=== PATIENT | female | born 1950 | race Hispanic/Latino ===

== ENCOUNTER → 2018-04-24 | Outpatient (CLI) | payer OTHER, MEDICARE | END | disposition home or self-care (01) | LOC: SHCH 15:50 | PROVIDERS: ATTEND Internal Medicine Cardiovascular Disease | DX: I87.2 Venous insufficiency (chronic) (peripheral) (principal) | CPT/HCPCS: 93970 ==

== ENCOUNTER → 2018-05-04 | Outpatient (CLI) | payer OTHER, MEDICARE | END | disposition home or self-care (01) | LOC: SHCH 08:25 | PROVIDERS: ATTEND Internal Medicine Cardiovascular Disease | DX: I51.7 Cardiomegaly (principal); R01.1 Cardiac murmur, unspecified | CPT/HCPCS: 93306 ==

== ENCOUNTER → 2019-09-03 | Outpatient (CLI) | payer OTHER, MEDICARE | END | disposition home or self-care (01) | LOC: OIH 15:22 | PROVIDERS: ATTEND Family Medicine | DX: M17.12 Unilateral primary osteoarthritis, left knee (principal); M25.762 Osteophyte, left knee | CPT/HCPCS: 73562 ==

== ENCOUNTER → 2020-11-24 | Outpatient (CLI) | payer OTHER | END | disposition home or self-care (01) | LOC: OIH 14:32 | PROVIDERS: ATTEND Family Medicine | DX: Z01.818 Encounter for other preprocedural examination (principal); I70.0 Atherosclerosis of aorta; J98.11 Atelectasis; M51.35 Other intervertebral disc degeneration, thoracolumbar region; M41.84 Other forms of scoliosis, thoracic region | CPT/HCPCS: 71046 ==

== ENCOUNTER → 2021-11-23 | Outpatient (CLI) | payer OTHER | END | disposition home or self-care (01) | LOC: RAH 14:24 | PROVIDERS: ATTEND Neurological Surgery | DX: M96.1 Postlaminectomy syndrome, not elsewhere classified (principal); M47.816 Spondylosis without myelopathy or radiculopathy, lumbar region; M48.061 Spinal stenosis, lumbar region without neurogenic claudication; M43.5X7 Other recurrent vertebral dislocation, lumbosacral region; M51.35 Other intervertebral disc degeneration, thoracolumbar region; M48.05 Spinal stenosis, thoracolumbar region; Z98.1 Arthrodesis status | CPT/HCPCS: 72131 ==

== ENCOUNTER → 2025-02-05 | Outpatient (CLI) | payer OTHER ==
--- NOTE | 2025-02-05 13:00 | HMCIMG ---
Exam Type: SHOULDER COMP 2+VWS RT Clinical Information: PAIN IN RT SHOULDER Comparison: None FINDINGS: There are severe degenerative changes of the glenohumeral joint with joint space narrowing, subchondral sclerosis, and marginal osteophytosis. The acromiohumeral space is preserved. The acromioclavicular joint is not hypertrophic. No fractures or dislocations are seen. The visualized portion of the right upper lung is clear. Impression: Severe degenerative changes as noted. No acute pathology. No fractures.
== END | disposition home or self-care (01) ==
LOC: RAH 12:14
PROVIDERS: ATTEND Family Medicine
DX: M19.011 Primary osteoarthritis, right shoulder (principal); M25.511 Pain in right shoulder
CPT/HCPCS: 73030

== ENCOUNTER → 2025-04-07 | Outpatient (CLI) | payer OTHER, MEDICARE ==
--- NOTE | 2025-04-07 15:46 | HMCIMG ---
Exam Type: CT UPPER EXT W/O CONTRAST Clinical Information: Post-traumatic osteoarthritis, right shoulder Comparison: None Findings: There are severe degenerative changes of the glenohumeral joint with joint space narrowing, subchondral sclerosis, and marginal osteophytosis. The acromiohumeral space is hypertrophic with degeneration as of the acromioclavicular joint. 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 No fractures or dislocations are seen. The visualized portion of the right upper lung is clear. Impression: Severe degenerative changes as noted. No acute pathology. No fractures.
== END | disposition home or self-care (01) ==
LOC: RAH 14:53
PROVIDERS: ATTEND Orthopaedic Surgery
DX: M19.111 Post-traumatic osteoarthritis, right shoulder (principal); M25.711 Osteophyte, right shoulder; M25.811 Other specified joint disorders, right shoulder
CPT/HCPCS: 73200

== ENCOUNTER 2025-07-10 09:21 | Observation (INO) | payer OTHER, MEDICARE ==
[2025-07-08 14:23] LABS: IMMATURE GRANULOCYTE ABSOLUTE 0.03 K/uL (0-1); NUCLEATED RED BLOOD CELLS 0.0 % (0.0-0.19); PLATELET COUNT (AUTO) 243 K/uL (130-400); RED BLOOD CELL COUNT(AUTO) 3.98 MIL/uL (4.00-5.50); RED CELL DISTRIBUTION WIDTH 12.8 % (11.0-15.5); WHITE BLOOD COUNT (AUTO) 9.8 K/uL (4.8-10.8)
[2025-07-08 14:39] VITALS: BP 141/64; PULSE 64; RESP 14; TEMP 97.7
[2025-07-08 14:44] LABS: APPEARANCE,URINE CLEAR (CLEAR); GLUCOSE, URINE (UA) NEGATIVE (NEGATIVE); LEUKOCYTE ESTERASE ,URINE NEGATIVE Leu/uL (NEGATIVE); NITRATE,URINE NEGATIVE (NEGATIVE); OCCULT BLOOD,URINE NEGATIVE (NEGATIVE)
[2025-07-08 14:46] LABS: ADD UA MICROSCOPIC YES
[2025-07-08 14:47] LABS: SQUAMOUS EPITHELIAL CELL,UR RARE /HPF (0-2)
--- NOTE | 2025-07-08 15:50 | NUR ---
PREOP INCENTIVE SPIROMETRY DONE BY MONALISA HOOVER
--- NOTE | 2025-07-09 06:34 | EKG ---
[facility] Test Date: 2025-07-08 Test Time: 14:06:22 Pat Name: CHRIS ROJAS Department: [facility] Room: Gender: F Residential Driver: [id number] : 1950 Requested By: ROCKY KEVIN Order Number: [id number] Reading MD: Maya Dove Measurements Intervals [place] Rate: 61 P: 14 MT: 200 QRS: -14 QRSD: 95 T: 40 QT: 425 QTc: 428 Interpretive Statements Sinus rhythm Consider left ventricular hypertrophy No previous ECG available for comparison Electronically Signed On 07-09-2025 11:35:22 CDT by Maya Dove Please click the below link to view image of tracing.
[~2025-07-10] VITALS: Ht 157.5 cm; Wt 92.5 kg
[2025-07-10] VITALS (22 sets, daily range): BP systolic 102–131; BP diastolic 51–69; PULSE 62–78; RESP 16–20; TEMP 97.5–98.2
[~2025-07-10 09:21] MED LIST: ACET-3305 PO; AMLO-258 PO; ASCO500C18 PO; ATOR40TA69 PO; BIOT5000 PO; CALC1CAP PO; DENO60DI SQ; GABA300C PO; GINK30CA3 PO; GLIM4TAB36 PO; KRIL1CAP19 PO; LEVO50TA11 PO; METF-446 PO; METO-391 PO; THIA100T91 PO
[2025-07-10] MEDS: 0.9%NACL 1000ML 1,000 ML IV ONE (10:40)
[2025-07-10] MEDS ORDERED: LIDOCAINE PF 100MG/5ML (2%) SYRINGE 5ML ONE (11:48)
[2025-07-10] MEDS ORDERED: NEOSTIGMINE METHYLSULFATE 1MG/ML IV ONE (13:16)
[2025-07-10] MEDS ORDERED: GLYCOPYRROLATE 0.2 MG/ML 5 ML VIAL ONE (13:16)
[2025-07-10] MEDS ORDERED: PoTASSium chloRIDE 20MEQ ER 20 MEQ ERTAB PO PRN (16:00)
[2025-07-10] MEDS ORDERED: FE FUMARATE/FA/MV, MIN COMB#15 1 TAB PO PRN (16:00)
[2025-07-10] MEDS ORDERED: CALCIUM CARB 500MG PO PRN (16:00)
[2025-07-10] MEDS ORDERED: CYCLOBENZAPRINE HCL 10 MG TABLET PO PRN (16:00)
[2025-07-10] MEDS ORDERED: PoTASSium chl 10% ELIXIR 20MEQ 20 MEQ/15 ML UDCUP PO PRN (16:00)
--- NOTE | 2025-07-10 16:18 | OP ---
Operative Note: DATE OF PROCEDURE: 07/10/25 SURGEON: ROCKY KEVIN MD NATURALIST: [Sejal Yip [facility]. Lorie Morris [facility]] ANESTHESIA: [General anesthesia plus regional block] ANESTHESIOLOGIST/HIGHER EDUCATION ADMINISTRATOR: [Terri Morris CRNA] PREOPERATIVE DIAGNOSIS: [Right shoulder osteoarthritis] POSTOPERATIVE DIAGNOSIS: [Right shoulder chronic rotator cuff arthropathy] IMPLANTS: [[employer] reverse comprehensive shoulder. Glenoid base plate size 25 mm. One 6.5 central screw and four peripheral 4.75 locking screws. Humeral stem size 10. Glenosphere size 36. Constrained liner 36 plus three. The standard humeral base plate] PROCEDURE: [Right shoulder reverse total arthroplasty] ESTIMATED BLOOD LOSS: [250 mL] INDICATIONS: [The patient is a 74-year-old female with a history of chronic pain to the right shoulder that has exacerbated in the last couple of years the pain become very disabling. She still has a decent range of motion which made us suspect that she has adequate rotator cuff but the plan will be to schedule her for primary versus reverse arthroplasty. Procedure understood, risks, benefits and possible complications and the patient agreed signed the consent form] DESCRIPTION OF PROCEDURE: [After adequate general anesthesia was achieved and regional block obtained the patient was placed in the beach chair position on the right upper extremity was prepped and draped in the usual manner. After identification of the bony landmarks and incision was carried down in the anterior aspect of the shoulder following the deltopectoral line through the skin followed by dissection of the subcutaneous tissue. After identification of the cephalic vein the deltopectoral space was developed and we proceeded to dissect the 2 muscles and retract them to enter into the space identifying the clavipectoral fascia which was incised just lateral to the short head of the bi ceps and directed superiorly and inferiorly. With the arm in a slight abduction and with a Chavez retractor elevating the abductor muscle were able to immediately encountered the arthritic humeral head due to the absence of the subscapularis tendon and the as well as the supra and infraspinatus. The circumflex artery was identified and ligated. The 1 cm superior portion of the pectoralis tendon insertion was cut leaving a small cuff of tendon and we then proceeded to open the long head of the biceps tendon sheath pulling then the tendon and applying to #2 Ethibond sutures through it and then tying it to the pectoralis cuff for a soft tissue tenodesis. The tendon was then cut proximal to this tenodesis and we followed the tendon proximally cutting through the tendon sheath all the way to the bicipital groove removing then the tendon at this level. At this point we proceeded to rotate the arm exposing the humeral head and proceeded with the dissection all the way to the posterior aspect of the humeral head using the Bovie cautery. The humeral head was completely hypertrophic secondary to multiple spurs that were then resected with the rongeur and was presented through the wound by externally rotating the arm further and extending it. We then proceeded to make a starting hole in the top of the humeral head entering the canal and then we proceeded to ream out to the appropriate size leaving the last reamer in place and then applying the humeral head cutting guide with 40 degree retroversion and after the guide was secured with pins we proceeded to remove the intramedullary reamer and with the use of the oscillating saw we proceeded to remove the humeral head. We then proceeded to use the rasps from the smallest to the chosen diameter obtain an adequate fit leaving the last rasp in place. Then retractors were applied anteriorly and posteriorly inferiorly to the glenoid keeping the arm externally rotated and after the glenoid was exposed we proceeded to remove the remnants of the labrum and we found the center of the glenoid and made a drill hole with a guidepin which stay in place and with the use of the C arm we visualized the position and once satisfied with the placement we proceeded then to reposition the retractors, remove the guidewire, measured the depth of the defect and then we proceeded to use the glenoid reamer to even the surface in a concave shape. After irrigation of the glenoid was completed we then proceeded to apply the baseplate after reaming over the pin in the center of the glenoid sitting adequately in the defect. A central screw was then inserted and after evaluation with fluoroscopy we then proceeded to applied for peripheral locking screws. We then proceeded to irrigate the wound with the antibiotic solution and apply the glenosphere and then the trial humeral insert and cup and the shoulder was reduced. Range of motion was tested and x-rays were taken once satisfied with the position of the components and the range of motion we proceeded then to remove the trial components from the humerus. The joint was again irrigated with antibiotic solution. The proximal aspect of the humerus was then presented and after irrigating the canal we proceeded then to insert the final humeral stem followed by application of the humeral cup and insert. A drain was placed through separate stab incision and we proceeded then to irrigate the wound 1st with a diluted Betadine solution followed by antibiotic irrigation with jet lavage and then close the wound with reapproximation of the deltopectoral interval with #1 Vicryl simple stitches followed by closure of the subcutaneous tissue with 2-0 Monocryl inverted stitches and the skin was closed with running stitch with 3-0 Monocryl subcuticularly.. Dermabond was applied to cover the incision and then Telfa dressing was applied to cover it and OpSite was then finally applied to cover the Telfa dressing. The drain was connected to the reservoir and the exit of the drain was covered with a Telfa dressing and an OpSite. The drapes were then removed, the patient was placed in an arm sling and then placed in the supine position and transferred to a hospital bed and taken to recovery room for follow-up by anesthesia. There were no complications during the procedure. ] ROCKY KEVIN MD Jul 10, 2025 16:18
[2025-07-10] MEDS: TRANEXAMIC ACID 1000MG/10ML ONE ×2 (17:09→20:13)
--- NOTE | 2025-07-10 18:10 | NUR ---
POST-OP: PT ARRIVED TO UNIT, POST-OP. AAOX3. PT DENIES PAIN. MONITORING POST OP VITALS. IV PATENT. RT ARM IN SLING, DRESSING INTACT. BED LOCKED AND LOW, CALL LIGHT IN REACH. BA ACTIVATED. WILL CONTINUE TO MONITOR.
[2025-07-10] MEDS: 0.9%NACL 1000ML 1,000 ML IV SCH (18:20)
[2025-07-10] MEDS: FAMOTIDINE 20MG VIAL IV ONE (20:12)
[2025-07-10] MEDS: GABAPENTIN 300 MG CAPSULE ONE (20:12)
[2025-07-10] MEDS: SUGAMMADEX SODIUM 200 MG/2 ML VIAL IV ONE (20:13)
[2025-07-11 00:10] VITALS: BP 120/59; PULSE 76
[2025-07-11 03:24] VITALS: BP 110/54; PULSE 74; RESP 16; TEMP 97.9
[2025-07-11 05:59] LABS: NUCLEATED RED BLOOD CELLS 0.0 % (0.0-0.19); PLATELET COUNT (AUTO) 202.0 K/uL (130-400); RED BLOOD CELL COUNT(AUTO) 3.38 MIL/uL (4.00-5.50); RED CELL DISTRIBUTION WIDTH 12.9 % (11.0-15.5); WHITE BLOOD COUNT (AUTO) 10.7 K/uL (4.8-10.8)
[2025-07-11 06:11] LABS: CREATININE 0.6 mg/dL (0.5-1.0); GLOMERULAR FILTR. RATE CALC 95.0 mL/min (>90); GLUCOSE,RANDOM 157.0 mg/dL (70-105); SODIUM SERUM 138.0 mmol/L (136-145); UREA NITROGEN, BLOOD 12.0 mg/dL (7-18)
[2025-07-11 08:00] VITALS: BP 124/65; PULSE 66; RESP 18; TEMP 97.8; O2SAT 96
--- NOTE | 2025-07-11 08:10 | PN ---
Ortho postop day one. This morning the patient is awake alert and oriented. She is already out of bed seated in a chair resting comfortably no acute distress enjoying his breakfast. Sister is at the bedside. She is been afebrile vital signs have been stable. Voiding on his own without difficulty. Laboratory results reviewed. Noted to have a drop in hemoglobin and hematocrit as expected after Reverse shoulder Arthroplasty. Patient is currently asymptomatic we will continue to observe and treat per protocol as necessary. Reinforced incentive spirometry. Drain intact 60ml output overnight Dressing intact. Distal NV intact. able to make full fist on command and full AROM of wrist. Ice is present to the extremity. Anticipating discharge goal is home with a home health/OT Therapy this morning. Operative findings discussed with the patient Assessment: Status post Right shouler reverse arthroplasty. Acute postoperative blood loss anemia. Plan: Continue with Dr. Jo protocol and discharge planning. Acute postoperative blood loss anemia addressed with the protocol as necessary Vitals/Labs Vital Signs Date Time Temp Pulse Resp B/P (MAP) Pulse Ox O2 Delivery O2 Flow Rate FiO2 07/11/25 03:24 97.9 74 16 110/54 92 Nasal Cannula 4.0 07/10/25 20:05 32 Laboratory Tests 07/11/25 05:37 Medications Current Medications Cefazolin Sodium 2 gm STK-MED ONCE .ROUTE; Start 07/10/25 at 10:22; Stop 07/10/25 at 10:28; Status DC Sodium Chloride 1,000 ml @ As Directed STK-MED ONCE IV Last administered on 07/10/25at 10:40; Start 07/10/25 at 10:22; Stop 07/10/25 at 10:28; Status DC Gabapentin 300 mg STK-MED ONCE .ROUTE; Start 07/10/25 at 11:40; Stop 07/10/25 at 11:41; Status DC Acetaminophen 100 ml @ As Directed STK-MED ONCE .ROUTE; Start 07/10/25 at 11:41; Stop 07/10/25 at 11:41; Status DC Famotidine 20 mg STK-MED ONCE IV; Start 07/10/25 at 11:41; Stop 07/10/25 at 11:41; Status DC Lidocaine HCl 100 mg STK-MED ONCE .ROUTE; Start 07/10/25 at 11:48; Stop 07/10/25 at 11:48; Status DC Propofol 200 mg STK-MED ONCE IV; Start 07/10/25 at 11:48; Stop 07/10/25 at 11:48; Status DC Rocuronium Sterling 50 mg STK-MED ONCE .ROUTE; Start 07/10/25 at 11:48; Stop 07/10/25 at 11:48; Status DC Fentanyl Citrate 100 mcg STK-MED ONCE .ROUTE; Start 07/10/25 at 11:48; Stop 07/10/25 at 11:48; Status DC Cefazolin Sodium 1 gm STK-MED ONCE .ROUTE; Start 07/10/25 at 12:01; Stop 07/10/25 at 12:01; Status DC Tranexamic Acid 1,000 mg STK-MED ONCE .ROUTE; Start 07/10/25 at 12:26; Stop 07/10/25 at 12:27; Status DC Ondansetron HCl 4 mg STK-MED ONCE .ROUTE; Start 07/10/25 at 13:06; Stop 07/10/25 at 13:06; Status DC Dexamethasone Sodium Phosphate 10 mg STK-MED ONCE .ROUTE; Start 07/10/25 at 13:06; Stop 07/10/25 at 13:06; Status DC Glycopyrrolate 1 mg STK-MED ONCE .ROUTE; Start 07/10/25 at 13:16; Stop 07/10/25 at 13:16; Status DC Neostigmine Methylsulfate 10 mg STK-MED ONCE IV; Start 07/10/25 at 13:16; Stop 07/10/25 at 13:16; Status DC Ephedrine Sulfate 50 mg STK-MED ONCE .ROUTE; Start 07/10/25 at 13:17; Stop 07/10/25 at 13:17; Status DC Rocuronium Sterling 50 mg STK-MED ONCE .ROUTE; Start 07/10/25 at 13:30; Stop 07/10/25 at 13:31; Status DC Ketamine HCl 50 mg STK-MED ONCE .ROUTE; Start 07/10/25 at 13:31; Stop 07/10/25 at 13:31; Status DC Sodium Chloride 1,000 ml @ 100 mls/hr Q10H IV Last administered on 07/11/25at 03:16; Start 07/10/25 at 16:00; Stop 07/11/25 at 15:59 Polyethylene Glycol 17 gm DAILY PO; Start 07/11/25 at 09:00; Stop 08/10/25 at 08:59 Bisacodyl 10 mg DAILY PRN RC; Start 07/13/25 at 16:00; Stop 08/12/25 at 15:59 Ketorolac Tromethamine 15 mg Q6H PRN IV; Start 07/10/25 at 16:00; Stop 07/15/25 at 15:59 Multivitamins/Iron 1 tab DAILY PRN PO; Start 07/10/25 at 16:00; Stop 08/09/25 at 15:59 Ondansetron HCl 4 mg Q6H PRN IVP; Start 07/10/25 at 16:00; Stop 08/09/25 at 15:59 Calcium Carbonate 500 mg Q12H PRN PO; Start 07/10/25 at 16:00; Stop 08/09/25 at 15:59 Diphenhydramine HCl 25 mg Q6H PRN IVP; Start 07/10/25 at 16:00; Stop 08/09/25 at 15:59 Insulin Human Regular INSULIN SLIDING SCAL... ACHS SQ Last administered on 07/10/25at 21:06; Start 07/10/25 at 16:30; Stop 08/09/25 at 16:29 Cefazolin Sodium 2 gm Q8H IVP Last administered on 07/11/25at 05:02; Start 07/10/25 at 21:00; Stop 07/11/25 at 05:01; Status DC Cyclobenzaprine HCl 5 mg Q8H PRN PO; Start 07/10/25 at 16:00; Stop 08/09/25 at 15:59 Docusate Sodium 100 mg BID PO Last administered on 07/10/25at 21:00; Start 07/10/25 at 21:00; Stop 08/09/25 at 20:59 Potassium Chloride 100 ml @ 100 mls/hr AD PRN IV; Start 07/10/25 at 16:00; Stop 08/09/25 at 15:59 Potassium Chloride 20 meq AD PRN PO; Start 07/10/25 at 16:00; Stop 08/09/25 at 15:59 Potassium Chloride 20 meq AD PRN PO; Start 07/10/25 at 16:00; Stop 08/09/25 at 15:59 Oxycodone HCl 5 mg Q4H PRN PO; Start 07/10/25 at 16:00; Stop 07/17/25 at 15:59 Oxycodone HCl 10 mg Q4H PRN PO Last administered on 07/11/25at 03:15; Start 07/10/25 at 16:00; Stop 07/17/25 at 15:59 Tramadol HCl 50 mg Q6H PRN PO; Start 07/10/25 at 16:00; Stop 07/15/25 at 15:59 Acetaminophen 1,000 mg Q8H PO Last administered on 07/10/25at 22:13; Start 07/10/25 at 16:00; Stop 07/11/25 at 15:59 Cefazolin Sodium 2 gm STK-MED ONCE IVPB Last administered on 07/10/25at 13:22; Start 07/10/25 at 13:22; Stop 07/10/25 at 16:32; Status DC Tranexamic Acid 1,000 mg STK-MED ONCE IV Last administered on 07/10/25at 13:25; Start 07/10/25 at 13:25; Stop 07/10/25 at 16:32; Status DC Cefazolin Sodium 3 gm STK-MED ONCE IVPB Last administered on 07/10/25at 13:35; Start 07/10/25 at 13:35; Stop 07/10/25 at 16:32; Status DC Tranexamic Acid 1,000 mg STK-MED ONCE .ROUTE Last administered on 07/10/25at 17:09; Start 07/10/25 at 17:02; Stop 07/10/25 at 17:03; Status DC Atorvastatin Calcium 40 mg HS PO; Start 07/11/25 at 21:00; Stop 08/10/25 at 20:59 Levothyroxine Sodium 50 mcg ACBKFST PO Last administered on 07/11/25at 06:33; Start 07/11/25 at 07:30; Stop 08/10/25 at 07:29 Metoprolol Succinate 50 mg DAILY PO; Start 07/11/25 at 09:00; Stop 08/10/25 at 08:59 Amlodipine Besylate 10 mg DAILY PO; Start 07/11/25 at 09:00; Stop 08/10/25 at 08:59 Home Med DAILY PO; Start 07/11/25 at 09:00; Stop 08/10/25 at 08:59 Metformin HCl 1,000 mg BIDMEALS PO; Start 07/11/25 at 08:00; Stop 08/10/25 at 07:59 CEILA HAWKINS NP Jul 11, 2025 08:10
[2025-07-11] MEDS ORDERED: GLIMEPIRIDE 4 MG PO SCH (09:00)
[2025-07-11] MEDS: amLODIPine 5 MG TAB PO SCH (09:45)
--- NOTE | 2025-07-11 11:10 | NUR ---
[facility] [place] [facility] MET WITH PT THIS MORNING INITIAL ASSESSMENT DONE. PATIENT IS INDEPENDENT PRIOR TO SURGERY, LIVES AT HOME ALONE, SISTER MATTHEW LIVES CLOSE BY. PATIENT HAS A WALKER, CANE, GLUCOMETER, TAKES PO MED FOR DM. DENIES ANY OTHER EQUIPMENT/SERVICES. FEELS SAFE TO GO BACK HOME, STILL DRIVE, SISTER AND FAMILY ABLE TO ASSIST WITH TRANSPORTATION AND NEEDS NECESSARY. DISCUSSED MD RECOMMENDATIONS HOME W/HOME HEALTH FOR PT, PT AGREEABLE, CONSENT SIGNED LAURA FOR [facility]. [facility] [place] [facility] W/ ONCE APPROVED. CM TO CONTINUE TO FOLLOW UP. Addendum: 07/11/25 at 1506 by HIPOLITO RAHMAN LVN Amended: Links added.
[2025-07-11 12:00] VITALS: BP 120/57; PULSE 62; RESP 18; TEMP 97.9
--- NOTE | 2025-07-11 15:30 | NUR ---
HANDOUT OF HEP INCLUDING PENDULUM EXERCISES GIVEN TO PATIENT. Addendum: 07/11/25 at 1538 by LANCE ODOM PT Amended: Links added.
[2025-07-11 16:00] VITALS: BP 125/69; PULSE 67; RESP 18; TEMP 98.1
[2025-07-11 20:00] VITALS: BP 123/66; PULSE 69; RESP 18; TEMP 97.8
[2025-07-12] VITALS: BP 127/62; PULSE 78; RESP 18; TEMP 99.7
[2025-07-12 04:00] VITALS: BP 128/69; PULSE 77; RESP 20; TEMP 99.4
[2025-07-12 08:00] VITALS: BP 97/46; PULSE 68; RESP 16; TEMP 98.4; O2SAT 95
--- NOTE | 2025-07-12 09:10 | NUR ---
PATIENT BP 97/46. ON RECHECK BP 105/52 CALLED MD TO NOTIFY. WE WILL HOLD METOPROLOL AND AMLODIPINE THIS MORNING.
[2025-07-12] MEDS: GLIMEPIRIDE 2 MG TABLET PO SCH (09:37)
[2025-07-12] MEDS ORDERED: 0.9% NACL 500ML IV.SOLN 500 ML IV SCH (10:00)
--- NOTE | 2025-07-12 10:43 | HMCIMG ---
CHEST 1VW REASON: LOW OXYGEN COMPARISON: Chest radiograph from 11/24/2020 is available. FINDINGS: Study demonstrate mild cardiomegaly with left ventricular contour. The lung rowell are clear. There is mild fibrosis seen in both midlung rowell. There is uncoiling atherosclerotic change of thoracic aorta. The bony thorax impression osteopenia. There are surgical clips seen in the left axillary region. There is reversed right shoulder arthroplasty which appears to be in satisfactory position. There is severe osteoarthropathy of the left glenohumeral joint. IMPRESSION: 1. Cardiomegaly with left ventricular contour 2. No evidence of airspace consolidation or pulmonary venous congestion.
[2025-07-12] MEDS: ASPIRIN 81MG CHEW TAB PO SCH (11:04)
[2025-07-12 11:42] VITALS: BP 109/50; PULSE 69; RESP 22; TEMP 98.1
[2025-07-12] MEDS ORDERED: AEC81 PO (15:42)
[2025-07-12] MEDS ORDERED: HYDR-4060 PO (15:42)
--- NOTE | 2025-07-12 15:45 | NUR ---
PATIENT IS DISCHARGED IV TAKEN OUT WITH CATHETER INTACT. HEMOVAC REMOVED AND OPSITE DRESSING SET. EDUCATION GIVEN TO PATIENT ON POSTOPERATIVE CARE. MEDICATIONS SENT TO THE PHARMACY. PATIENT TAKE DOWN BY GREEN PIPEFITTER
--- NOTE | 2025-07-12 15:55 | DS ---
DISCHARGE SUMMARY [DATE OF ADMISSION: 07/10/2025 DATE OF DISCHARGE: 07/12/2025 FINAL DIAGNOSIS: LEFT SHOULDER ROTATOR CUFF ARTHROPATHY SURGICAL PROCEDURES: LEFT REVERSE TOTAL SHOULDER ARTHROPLASTY ON 07/10/2025 SUMMARY OF HISTORY AND PHYSICAL: THE PATIENT IS A 74 YEAR-OLD FEMALE WITH HISTORY OF SEVERE ARTHROSIS TO THE LEFT SHOULDER SECONDARY TO ROTATOR CUFF ARTHROPATHY THAT HAS BEEN PRESENT FOR SEVERAL YEARS AND HAS BEEN TREATED CONSERVATIVELY WITH NO LONGER ADEQUATE RESPONSE TO TREATMENT. THE PATIENT IS BEING ADMITTED FOR A TOTAL SHOULDER ARTHROPLASTY. PREVIOUS MEDICAL HISTORY: DIABETES MELLITUS, CANCER, HYPERTENSION, HYPOTHYROIDISM. PREVIOUS SURGICAL HISTORY: RIGHT TOTAL KNEE ARTHROPLASTY, LEFT TOTAL KNEE ARTHROPLASTY, BACK SURGERY. FAMILY HISTORY: HYPERTENSION. SOCIAL HISTORY: NEGATIVE FOR USE OF TOBACCO OR ALCOHOL. ALLERGIES: NKDA. REVIEW OF SYSTEM: NEGATIVE ON ADMISSION HOSPITAL COURSE: THE PATIENT WAS ADMITTED AND TAKEN TO THE OPERATING ROOM FOR A LEFT REVERSE TOTAL SHOULDER ARTHROPLASTY, PROCEDURE THAT WENT UNEVENTFUL. POSTOPERATIVELY THE PATIENT REMAINED HEMODYNAMICALLY STABLE AND AFEBRILE. THE PATIENT RECEIVED ANTIBIOTIC AND ANTICOAGULATION PROPHYLAXIS PER PROTOCOL. THE PATIENT WAS EVALUATED BY PHYSICAL THERAPY AND STARTED REHABILITATION TREATMENT WITH GENTLE RANGE OF MOTION EXERCISES TO THE SHOULDER. THE PATIENT WAS ALSO EVALUATED BY CASE MANAGEMENT AND ARRANGEMENTS WERE MADE FOR DISCHARGE. THE PATIENT TOLERATED DIET WELL. ON POSTOP DAY #2 ALL THE ARRANGEMENTS WERE COMPLETED. THE DRAIN WAS REMOVED, THE DRESSING WAS CHANGED AND THE WOUND WAS NOTED TO BE STABLE AND THE PATIENT WAS DISMISSED. CONDITION ON DISCHARGE: GOOD DISPOSITION: THE PATIENT WILL BE DISMISSED HOME WITH HOME HEALTH. FOLLOW-UP W ILL BE DONE AT THE OFFICE IN 3 WEEKS. THE PATIENT IS TO CONTINUE WITH THERAPY AND REHABILITATION AT HOME. CONTINUE TAKING PAIN MEDICATION INSTRUCTED WELL HOME MEDICATIONS INSTRUCTED AND CONTINUE WITH PRE ADMISSION DIET.] ROCKY KEVIN MD Jul 12, 2025 15:55
[2025-07-12 16:00] VITALS: BP 107/58; PULSE 72; RESP 18; TEMP 98.4
== END 2025-07-12 18:05 | disposition home health service (06) ==
LOC: DAH 09:21 → DAHIP 09:22 → DAH 09:22 → 4BH 18:02
PROVIDERS: ADMIT Orthopaedic Surgery; ATTEND Orthopaedic Surgery
DX: M19.011 Primary osteoarthritis, right shoulder (principal); M25.511 Pain in right shoulder; I10 Essential (primary) hypertension; E11.9 Type 2 diabetes mellitus without complications; E03.9 Hypothyroidism, unspecified; D62 Acute posthemorrhagic anemia; Z79.899 Other long term (current) drug therapy; Z98.890 Other specified postprocedural states
CPT/HCPCS: 85025; 87086; 81001; 36415 ×2; 93005; 87641; 23472; 96365; 96366 ×2; 64415; 82948 ×10; 73030; 80048; 85027; 97161; 97116 ×4; 97530 ×4; 96375; 71045; J1815 ×4; G0378 ×50; A4223 ×2; A4600; C1776 ×5; C1713 ×3; C1768; A4663; J7030 ×2; J0690 ×6; J3490 ×9; J3010; J1100; J2003; J2704; J2405; J2710; A6206; A4649 ×2; A4930 ×2; A4215; A4222; A4221; A4216; J1885